=== PATIENT | female | born 1965 | race Caucasian/White ===

== ENCOUNTER 2022-10-25 12:36 | Inpatient (IN) | payer OTHER ==
[~2022-10-25] VITALS: Ht 162.6 cm; Wt 103.0 kg
[~2022-10-25 12:36] MED LIST: KETO10TA2 PO; ORPH100T PO
[2022-10-25] MEDS ORDERED: GABAPENTIN100 M2 PO (13:14)
[2022-10-25] MEDS ORDERED: METFORMIN HCL500 M1 PO (13:14)
[2022-10-25] MEDS ORDERED: VASOTEC20 MG PO (13:14)
[2022-10-25] MEDS ORDERED: CYMBALTA20 MG PO (13:15)
--- NOTE | 2022-10-25 13:25 | NUR ---
SE RECIBE PTE FEMINA ALERTA Y ORIENTADA X3 DE 57 ANOS DE EDAD, PTE VIENE POR DOLOR EN EL PECHO Y HORMIGUEOS Y DEBILIDAD EN MANO IZQUIERDA, PTE CON DX DE DM2 Y HBP, FUMADORA. SE ANA S/V Y SE HACE EKG Y SE PRESENTA A QUIEN INDICA PTE TIENE TODOS LOS CRITERIOS PARA SER ATENDIDA EN FAST TRACK, SE PRESENTA DEYSI Y EKG A QUIEN REFIERE PTE TIENE MUCHOS FACTORES DE RIESGO PARA SER ATENDIDA EN FAST TRACK, SE UBICA EN PASILLO.
--- NOTE | 2022-10-25 14:44 | NUR ---
PACIENTE EVALUADA POR JUAN JOSÉ HERRERA QUIEN ORDENA TRATAMIENTO. RN DEL SINDY ORIENTA Y EDUCA PACIENTE SOBRE TRATAMIENTO QUIEN REFIERE ENTENDER, SE ANA MUESTRAS DE LABORATORIO BAJO MEDIDAS ASEPTICAS. SE ADMINISTRAN MEDICAMENTOS ELBA ORDEN MEDICA. SE MANTIENE PACIENTE EN ESPERA DE RESULTADOS DE LABORATORIO.
--- NOTE | 2022-10-25 15:33 | NUR ---
SE RECIBE PTE ALERTA Y ORIENTADO X3. SE OBSERVA PTE CON BUEN PATRON RESPIRATORIO, PEND RESULTADOS DE LABORATORIO.
--- NOTE | 2022-10-25 17:28 | NUR ---
1640: SE RECIBE PTE ALERTA Y ORIENTADA X3 AMBULANDO EN AREA DE CHEST PAIN, LA MISMA SE OBSERVA CON ANGIO #[address] LINTON COLOCA A LA MISMA EN AREA POR LAB ALTERADOS. SE CONECTA A MONITOR CARDIACO Y OXIMETRIA DE [place], VITALES DOCUMENTADOS EN SISTEMA, SE LE MARTHA POSISICON Y COMODIDAD A LA MISMA. SE LE COLOCA TRIDIL @ 3ML/HR PRESIONES DOCUMENTADAS EN SISTEMA [place], PACIENTE REFIERE DOLOR DE DEMI Y SE LE MARTHA MEDICACION PARA EL DOLOR, SE LE BAJA TRIDIL A 1ML/HR. SE RAJANI PACIENTE EN CAMA CON BARANDAS ELEVADAS CON VITALES Q1HORA POR [place].
[2022-10-26] MEDS ORDERED: ATORVASTATIN CA10 MG (14:31)
== END 2022-10-27 13:50 | disposition designated cancer center or children's hospital (05) | DRG 282 ==
LOC: ER 12:36 → ICU-2 18:28 → ICU 18:28
PROVIDERS: ADMIT Internal Medicine; ATTEND Internal Medicine
PROC: B24BZZZ Ultrasonography of Heart with Aorta (ICD-10-PCS; principal; 2022-10-26)
DX: I21.4 Non-ST elevation (NSTEMI) myocardial infarction (principal); I24.9 Acute ischemic heart disease, unspecified; I11.9 Hypertensive heart disease without heart failure; E11.9 Type 2 diabetes mellitus without complications; Z79.4 Long term (current) use of insulin; E78.5 Hyperlipidemia, unspecified; Z20.822 Contact with and (suspected) exposure to COVID-19; F17.200 Nicotine dependence, unspecified, uncomplicated